=== PATIENT | female | born 1940 | race Caucasian/White ===

== ENCOUNTER 2017-09-24 07:21 | Outpatient (CLI) | payer OTHER ==
[~2017-09-24 07:21] MED LIST: LEVO-T25 MCG PO; NABUMETONE500 MG PO; PERCOCET 5/3251 TAB PO; PRAVASTATIN SOD10 MG PO; ZESTRIL5 MG PO
== END 2017-09-24 07:30 | disposition home or self-care (01) ==
LOC: LAB 07:21
DX: Z12.13 Encounter for screening for malignant neoplasm of small intestine (principal); E11.69 Type 2 diabetes mellitus with other specified complication; E78.2 Mixed hyperlipidemia; E03.8 Other specified hypothyroidism

== ENCOUNTER → 2017-09-25 08:28 | Outpatient (CLI) | payer OTHER | END | disposition home or self-care (01) | LOC: LAB 08:28 | DX: Z12.13 Encounter for screening for malignant neoplasm of small intestine (principal); E11.69 Type 2 diabetes mellitus with other specified complication; E78.2 Mixed hyperlipidemia; E03.8 Other specified hypothyroidism ==

== ENCOUNTER 2017-11-09 12:26 | Outpatient (CLI) | payer OTHER | END 2017-11-09 14:54 | disposition home or self-care (01) | LOC: RAD 501 12:26 | DX: M17.0 Bilateral primary osteoarthritis of knee (principal) ==

== ENCOUNTER → 2018-01-18 | Outpatient (CLI) | payer OTHER | END | disposition home or self-care (01) | LOC: RAD 11:07 | DX: M25.561 Pain in right knee (principal); M25.562 Pain in left knee ==

== ENCOUNTER → 2018-02-01 09:40 | Outpatient (CLI) | payer OTHER | END | disposition home or self-care (01) | LOC: LAB 09:40 → RAD 09:40 | DX: M19.90 Unspecified osteoarthritis, unspecified site (principal); N39.0 Urinary tract infection, site not specified ==

== ENCOUNTER 2018-03-10 08:15 | Outpatient (CLI) | payer OTHER | END 2018-03-10 08:23 | disposition home or self-care (01) | LOC: LAB 08:15 | DX: D62 Acute posthemorrhagic anemia (principal); E78.2 Mixed hyperlipidemia; N39.0 Urinary tract infection, site not specified ==

== ENCOUNTER 2018-04-15 08:28 | Inpatient (IN) | payer OTHER ==
[~2018-04-15] VITALS: Ht 147.3 cm; Wt 77.1 kg
[2018-04-20] MEDS ORDERED: CLINDAMYCIN HC300 MG PO (13:43)
[2018-04-20] MEDS ORDERED: FLUCONAZOLE100 MG PO (13:43)
[2018-04-20] MEDS ORDERED: INTESTINEX680 M1 PO (13:44)
[2018-04-20] MEDS ORDERED: ZANTAC150 MG PO (13:44)
== END 2018-04-20 14:00 | disposition home health service (06) | DRG 863 ==
LOC: ER 08:28 → MEDI 15:30
PROVIDERS: Orthopaedic Surgery
PROC: 0J9D0ZX Drainage of Right Upper Arm Subcutaneous Tissue and Fascia, Open Approach, Diagnostic (ICD-10-PCS; principal; 2018-04-16 07:00)
DX: T81.4XXA Infection following a procedure, initial encounter (principal); L03.113 Cellulitis of right upper limb; L02.413 Cutaneous abscess of right upper limb; Y83.8 Other surgical procedures as the cause of abnormal reaction of the patient, or of later complication, without mention of misadventure at the time of the procedure; Y92.098 Other place in other non-institutional residence as the place of occurrence of the external cause; I10 Essential (primary) hypertension; E03.8 Other specified hypothyroidism; E66.8 Other obesity; E78.00 Pure hypercholesterolemia, unspecified; B37.2 Candidiasis of skin and nail

== ENCOUNTER 2018-11-11 06:41 | Outpatient (CLI) | payer OTHER ==
[~2018-11-11 06:41] MED LIST changes: +CLINDAMYCIN HC300 MG PO; +FLUCONAZOLE100 MG PO; +INTESTINEX680 M1 PO; +ZANTAC150 MG PO
== END 2018-11-11 06:48 | disposition home or self-care (01) ==
LOC: LAB 06:41
DX: E11.65 Type 2 diabetes mellitus with hyperglycemia (principal); E78.2 Mixed hyperlipidemia; E55.9 Vitamin D deficiency, unspecified; E03.8 Other specified hypothyroidism; Z12.13 Encounter for screening for malignant neoplasm of small intestine; Z12.11 Encounter for screening for malignant neoplasm of colon; I70.0 Atherosclerosis of aorta

== ENCOUNTER 2018-11-15 10:07 | Outpatient (CLI) | payer OTHER | END 2018-11-15 15:00 | disposition home or self-care (01) | LOC: LAB 10:07 | DX: E03.8 Other specified hypothyroidism (principal); E11.69 Type 2 diabetes mellitus with other specified complication; Z12.13 Encounter for screening for malignant neoplasm of small intestine; Z12.11 Encounter for screening for malignant neoplasm of colon; E78.2 Mixed hyperlipidemia; E55.9 Vitamin D deficiency, unspecified; N19 Unspecified kidney failure ==

== ENCOUNTER 2019-03-23 18:25 | Emergency (ER) | payer OTHER ==
[~2019-03-23] VITALS: Ht 147.3 cm; Wt 72.6 kg
[2019-03-24] MEDS ORDERED: KETO10TA2 PO (00:10)
[2019-03-24] MEDS ORDERED: CIPRO500 MG PO (00:10)
== END 2019-03-24 00:43 | disposition home or self-care (01) ==
LOC: ER 18:25
DX: N20.2 Calculus of kidney with calculus of ureter (principal); R10.31 Right lower quadrant pain

== ENCOUNTER 2019-06-16 12:21 | Emergency (ER) | payer OTHER ==
[~2019-06-16] VITALS: Ht 147.3 cm; Wt 72.6 kg
[~2019-06-16 12:21] MED LIST changes: +CIPRO500 MG PO; +KETO10TA2 PO
[2019-06-16] MEDS ORDERED: BACTRIM DS TAB1 EACH PO (15:12)
== END 2019-06-16 15:50 | disposition home or self-care (01) ==
LOC: ER 12:21
DX: N39.0 Urinary tract infection, site not specified (principal)

== ENCOUNTER → 2019-07-14 10:43 | Outpatient (CLI) | payer OTHER ==
[~2019-07-14 10:43] MED LIST changes: +BACTRIM DS TAB1 EACH PO
== END | disposition home or self-care (01) ==
LOC: LAB 10:43
DX: N39.0 Urinary tract infection, site not specified (principal); N20.0 Calculus of kidney; D68.8 Other specified coagulation defects; J18.8 Other pneumonia, unspecified organism

== ENCOUNTER 2022-01-22 09:01 | Outpatient (CLI) | payer OTHER | END 2022-01-22 09:09 | disposition home or self-care (01) | LOC: RAD 09:01 | PROVIDERS: ATTEND General Practice | DX: M25.561 Pain in right knee (principal); M25.562 Pain in left knee ==

== ENCOUNTER 2022-06-01 08:39 | Outpatient (CLI) | payer OTHER | END 2022-06-01 08:40 | disposition home or self-care (01) | LOC: LAB 08:39 | PROVIDERS: ATTEND General Practice | DX: D50.0 Iron deficiency anemia secondary to blood loss (chronic) (principal); E78.00 Pure hypercholesterolemia, unspecified; E11.65 Type 2 diabetes mellitus with hyperglycemia; N39.0 Urinary tract infection, site not specified; Z12.11 Encounter for screening for malignant neoplasm of colon ==